=== PATIENT | male | born 1995 | race Caucasian/White ===

== ENCOUNTER → 2016-12-04 | Outpatient (CLI) | payer BC ==
--- NOTE | 2016-12-04 20:39 | DI ---
XR HAND MIN 3VW,12/04/2016 4:12 PM: Clinical History: Left hand injury. Previous Exam: None at this facility. Findings: 3 views of the left hand are obtained, and demonstrate anatomic alignment without fractures. The surr ounding soft tissues are unremarkable. Impression: Normal left hand.
== END ==
LOC: RAD 16:16
PROVIDERS: ATTEND Physician Assistant
DX: S69.92XA Unspecified injury of left wrist, hand and finger(s), initial encounter (principal); W23.0XXA Caught, crushed, jammed, or pinched between moving objects, initial encounter
CPT/HCPCS: 73130